=== PATIENT | female | born 1975 | race Caucasian/White ===

== ENCOUNTER → 2016-10-27 | Outpatient (CLI) | payer BC | END | disposition home or self-care (01) | LOC: GMAJ 10:52 | PROVIDERS: ATTEND Family Medicine | DX: I10 Essential (primary) hypertension (principal) ==

== ENCOUNTER 2016-11-24 12:16 | Inpatient (IN) | payer BC ==
--- NOTE | 2016-11-24 12:34 | ED.PDOC ---
History of Present Illness - General Chief Complaint: GI Problem Stated Complaint: vomiting Time Seen by Provider: 11/24/16 12:30 Source: patient Exam Limitations: no limitations - History of Present Illness Initial Comments: Annetta Miranda 41 y/o female stated had watery diarrhea today as well as nausea /vomiting.Had been Treated for shingles on her face 3 days ago with antiviral and gabapentin. Timing/Duration: 1-3 hours Severity: moderate Improving Factors: nothing Worsening Factors: nothing Associated Symptoms: nausea/vomiting Allergies/Adverse Reactions: Allergies NO KNOWN ALLERGY Allergy (Verified 11/24/16 12:31) Home Medications: Ambulatory Orders Citalopram Hydrobromide [Celexa] 40 mg PO DAILY 10/30/13 Lisinopril 10 mg PO DAILY 10/31/15 Review of Systems - Review of Systems Constitutional: States: no symptoms reported EENTM: States: no symptoms reported Respiratory: States: no symptoms reported Cardiology: States: no symptoms reported Gastrointestinal/Abdominal: States: see HPI Musculoskeletal: States: no symptoms reported Skin: States: see HPI Past Medical History (General) - Patient Medical History Hx Congestive Heart Failure: No Hx Hypertension: Yes Hx Diabetes: No Hx Other PMH: Yes - shingles Surgical History: other - hysterectomy - Vaccination History Hx Influenza Vaccination: No Hx Pneumococcal Vaccination: No - Social History Hx Tobacco Use: Yes Family Medical History - Family History Mother Family History: Unknown Living Status: Unknown Physical Exam - Physical Exam General Appearance: Alert, No apparent distress Eye Exam: bilateral normal Ears, Nose, Throat: hearing grossly normal, normal ENT inspection, normal pharynx Neck: non-tender, full range of motion Respiratory: chest non-tender, lungs clear, normal breath sounds Cardiovascular/Chest: normal peripheral pulses, regular rate, rhythm, no murmur Peripheral Pulses: radial,right: 1+, radial,left: 1+ Gastrointestinal/Abdominal: normal bowel sounds, non tender, soft, no organomegaly Back Exam: normal inspection, no CVA tenderness Extremity: normal range of motion, non-tender, no calf tenderness Neurologic: alert, normal mood/affect, oriented x 3 Skin Exam: normal color, warm/dry, rash - dried skin rash left side face Progress - Progress Progress: 11/24/16 19:08 Vital Signs - 8 hr 11/24/16 11/24/16 11/24/16 12:20 14:00 15:29 Temperature 98.7 F Pulse Rate [ 107 H 130 H 108 H pulse ox] Respiratory 20 20 18 Rate Blood Pressure 114/73 108/67 [Left Arm] O2 Sat by Pulse 98 95 93 L Oximetry 11/24/16 18:00 Temperature Pulse Rate [ 92 H pulse ox] Respiratory 20 Rate Blood Pressure 112/74 [Left Arm] O2 Sat by Pulse 94 L Oximetry Laboratory Last Values WBC 23.9 K/mm3 (4.8-10.8) H* 11/24/16 13:40 RBC 5.84 M/mm3 (4.20-5.40) H 11/24/16 13:40 Hgb 18.0 gm/dL (12.0-16.0) H 11/24/16 13:40 Hct 53.9 % (36.0-47.0) H* 11/24/16 13:40 MCV 92.2 fl (81.0-99.0) 11/24/16 13:40 MCH 30.8 pg (27.0-31.0) 11/24/16 13:40 MCHC 33.3 g/dL (33.0-37.0) 11/24/16 13:40 RDW 14.4 % (11.5-14.5) 11/24/16 13:40 Plt Count 211 K/mm3 (130-400) 11/24/16 13:40 MPV 7.6 fl (7.40-10.4) 11/24/16 13:40 Absolute Neuts (auto) Not Reportable 11/24/16 13:40 Absolute Lymphs (auto) Not Reportable 11/24/16 13:40 Absolute Monos (auto) Not Reportable 11/24/16 13:40 Absolute Eos (auto) Not Reportable 11/24/16 13:40 Neutrophils % Not Reportable 11/24/16 13:40 Neutrophils % (Manual) 86.0 % 11/24/16 13:40 Lymphocytes % Not Reportable 11/24/16 13:40 Lymphocytes % (Manual) 9.0 % 11/24/16 13:40 Monocytes % Not Reportable 11/24/16 13:40 Monocytes % (Manual) 1.0 % 11/24/16 13:40 Eosinophils % Not Reportable 11/24/16 13:40 Basophils % Not Reportable 11/24/16 13:40 Band Neutrophils 4.0 % 11/24/16 13:40 Platelet Estimate Nor (NORMAL) 11/24/16 13:40 Normal RBC Morphology Normal rbc morph 11/24/16 13:40 ESR 1 mm/hr (0-25) 11/24/16 13:40 Sodium 141 mmol/L (135-145) 11/24/16 13:40 Potassium 3.9 mmol/L (3.6-5.0) 11/24/16 13:40 Chloride 103 mmol/L (101-111) 11/24/16 13:40 Carbon Dioxide 24 mmol/L (21-31) 11/24/16 13:40 Anion Gap 17.9 (12-18) 11/24/16 13:40 BUN 15 mg/dL (7-18) 11/24/16 13:40 Creatinine 0.76 mg/dL (0.6-1.3) 11/24/16 13:40 BUN/Creatinine Ratio 19.7 (10-20) 11/24/16 13:40 Random Glucose 127 mg/dL (70-105) H 11/24/16 13:40 Serum Osmolality 283.7 mOsm/L (275-295) 11/24/16 13:40 Lactic Acid 1.5 mmol/L (0.5-2.2) 11/24/16 15:55 Calcium 10.1 mg/dL (8.4-10.2) 11/24/16 13:40 Total Bilirubin 0.6 mg/dL (0.2-1.0) 11/24/16 13:40 AST 106 IU/L (10-42) H 11/24/16 13:40 ALT 166 IU/L (10-60) H 11/24/16 13:40 Alkaline Phosphatase 79 IU/L (42-121) 11/24/16 13:40 C-Reactive Protein 0.6 mg/dL (0-1.0) 11/24/16 13:40 Serum Total Protein 7.4 gm/dL (6.4-8.2) 11/24/16 13:40 Albumin 4.5 g/dl (3.2-5.5) 11/24/16 13:40 Globulin 2.9 gm/dL (2.3-3.5) 11/24/16 13:40 Albumin/Globulin Ratio 1.6 (1.1-1.9) 11/24/16 13:40 Urine Color Yellow (Yellow) 11/24/16 16:20 Urine Appearance Clear (Clear) 11/24/16 16:20 Urine pH 7.5 (4.5-7.8) 11/24/16 16:20 Ur Specific [place] 1.015 (1.005-1.030) 11/24/16 16:20 Urine Protein 30 mg/dL 11/24/16 16:20 Urine Glucose (UA) Negative mg/dL (Negative) 11/24/16 16:20 Urine Ketones Negative mg/dL (NEGATIVE) 11/24/16 16:20 Urine Blood Trace-lysed (Negative) H 11/24/16 16:20 Urine Nitrite Negative 11/24/16 16:20 Urine Bilirubin Negative (NEGATIVE) 11/24/16 16:20 Urine Urobilinogen 0.2 mg/dL (0.2-1.0) 11/24/16 16:20 Ur Leukocyte Esterase Negative (Negative) 11/24/16 16:20 Urine RBC 0-1 /hpf 11/24/16 16:20 Urine WBC 1-3 /hpf 11/24/16 16:20 Ur Epithelial Cells 1-3 /hpf 11/24/16 16:20 Amorphous Sediment 1+ 11/24/16 16:20 Urine Bacteria Rare 11/24/16 16:20 Urine Mucus Large 11/24/16 16:20 Departure - Departure Clinical Impression: History of shingles, Abnormal LFTs (liver function tests), Elevated hemoglobin Nausea & vomiting Qualifiers: Vomiting type: unspecified Vomiting Intractability: unspecified Qualified Code( s): R11.2 - Nausea with vomiting, unspecified Diarrhea Qualifiers: Diarrhea type: unspecified type Qualified Code(s): R19.7 - Diarrhea, unspecified Time of Disposition: 19:12 Disposition: Admit Patient Condition: Fair Departure Forms: Patient Portal Self Enrollment Referrals: Ronnie Story MD [Primary Care Provider] - 1-2 Weeks Home Medications: Ambulatory Orders Citalopram Hydrobromide [Celexa] 40 mg PO DAILY 10/30/13 Lisinopril 10 mg PO DAILY 10/31/15 Decision To Admit - Decistion To Admit Decision to Admit Reason: Admit from ER Decision to Admit Date: 11/24/16 Decision to Admit Time: 19:11
[2016-11-24] MEDS ORDERED: LACTATED RINGERS 1,000 ML IVS ONE (12:37)
[2016-11-24] MEDS ORDERED: PROMETHAZINE HCL INJ 25 MG/ML VIAL IM ONE (12:37)
[2016-11-24] MEDS ORDERED: levoFLOXacin 500MG IV 500 MG in PREMIX BAG 1 BAG IVPB ONE (14:50)
[2016-11-24] MEDS ORDERED: levoFLOXacin 500MG IV 100 ML IVPB ONE (15:22)
--- NOTE | 2016-11-24 16:50 | CT ---
EXAM DESCRIPTION: Soft Tissue Neck w/Contrast CLINICAL HISTORY: 41 years Female skin irritations/discomfort, sudden onset of skin rash, elevated white count COMPARISON: None. TECHNIQUE: Contiguous axial images obtained through the neck without IV contrast. Reformatted images obtained. This exam was performed according to our department optimization program which includes automated exposure control, adjustment of the mA and/or kv according to patient size and/or use of iterative reconstruction technique. FINDINGS: The visualized intracranial structures and post septal orbits appear grossly unremarkable. The parotid glands appear within normal limits. There are mildly prominent lymph nodes in and around the parotid on the left. The submandibular glands appear normal in size. There is mild prominence of the ducts and the submandibular glands without evidence of edema. No obstructing calculus is noted. There appears to be accessory salivary gland tissue along the floor of the mouth which is a normal variant. The pharynx and larynx appear unremarkable. Scattered lymph nodes in the neck likely reactive. No enlarged nodes or mass lesions are identified. No fluid or significant mucosal thickening in the visualized paranasal sinuses. There is subcutaneous stranding and edema in the posterior and inferior periauricular region on the left extending along the parotid and the Journal cleidomastoid. This is of uncertain clinical significance. Question cellulitis. Other etiology is not excluded. No focal or drainable fluid collection is noted. Multilevel degenerative change in the spine with findings suggesting disc herniation posterior to C5-C6 with material extending along the posterior margin of the C5 vertebral body. This appears to result in mild stenosis. Moderate stenosis at C6-C7. IMPRESSION: There is subcutaneous stranding and edema along the periauricular region on the left extending along the left occipital scalp, left parotid and sternocleidomastoid of uncertain clinical significance. Given the patient's history findings suggest cellulitis Scattered likely reactive lymph nodes Degenerative changes as described in the cervical spine Electronically signed by: Chely Luong 11/24/2016 4:49 PM CDT
--- NOTE | 2016-11-24 16:51 | CT ---
EXAM DESCRIPTION: Maxillofacial CLINICAL HISTORY: 41 years Female skin irritations/discomfort, sudden onset of skin rash, elevated white count COMPARISON: None. TECHNIQUE: Contiguous axial images obtained through the maxillofacial region after administration of IV contrast. Reformatted images obtained. This exam was performed according to our department optimization program which includes automated exposure control, adjustment of the mA and/or kv according to patient size and/or use of iterative reconstruction technique. FINDINGS: The post septal orbits appear unremarkable. No fluid or significant mucosal thickening in the visualized paranasal sinuses. 1 there is a small amount of subcutaneous stranding and edema which extends in the posterior and inferior periauricular region on the left and along the left aspect of the occiput. Inflammation extends along the sternocleidomastoid. No focal fluid collection is noted. Question cellulitis. Other etiology is not excluded. The parotid glands appear intrinsically normal. Submandibular glands are within normal limits with accessory tissue along the floor the mouth. Degenerative changes in the cervical spine at C5-6 and C6-7 with findings suggesting HNP at C5-6. No evidence of acute fracture of the facial bones. IMPRESSION: There is subcutaneous stranding and edema in the left periauricular region extending along the posterior aspect of the occipital scalp and along the neck on the left along the sternocleidomastoid and the mandibular angle. Findings are nonspecific, but given the patient's history, favor cellulitis Scattered likely reactive lymph nodes No focal fluid collection identified Electronically signed by: Chely Luong 11/24/2016 4:50 PM CDT
[2016-11-24] MEDS ORDERED: GABAPENTIN 300 MG CAP PO ONE (18:43)
--- NOTE | 2016-11-24 19:54 | HP ---
SUPERVISING PHYSICIAN: Ronnie Story MD CHIEF COMPLAINT: Facial rash and nausea. HISTORY OF PRESENT ILLNESS: This is a 41-year-old, female patient who has had complaints of a rash on the left side of her face since about Tuesday. She saw her primary care physician, Dr. Ronnie Story, in clinic on Tuesday and was diagnosed with shingles of her V1, V2, V3 dermatome on the left side of her face. She was given Valtrex and gabapentin. It is to be noted that about a month ago, she had complaints of bilateral ear pain and was treated with Levaquin for an ear infection. She said about a week ago, she thought her ear infection had come back and her left ear was really hurting. She took the medicine that Dr. Story had prescribed for her. Today it worsened to the point that she came back to see him . The shingles vesicles had improved and were crusted over, but she looked to have a bacterial infection on the left side of her face. Dr. Story initially had tried to get her to be admitted to the hospital once she had a sonogram completed. Initially she decided she would not be admitted, but the pain worsened so badly that she went to the Emergency Room. In the Emergency Room, she complained mostly of nausea with vomiting as well as pain to the left face. Initial lab work in the Emergency Room revealed WBC 23,900 with neutrophils 86%. Hemoglobin 18, hematocrit 53.9. Her electrolytes were basically within normal limits, but her glucose was slightly elevated at 127. Lactic acid 2.3, AST 106, ALT 166. She was given some fluids in the Emergency Room and then a CT of the soft tissues of her neck per radiologic interpretation showed subcutaneous stranding and edema along the periauricular region and on the left extending along the left occipital scalp, left parotid and sternocleidomastoid of uncertain clinical significance. Given the patient's history, findings suggest cellulitis, scattered likely reactive lymph nodes. She also had a maxillofacial CT that per radiologic interpretation showed subcutaneous stranding and edema in the left periauricular region extending along the posterior aspect of the occipital scalp and along the neck on the left, along the sternocleidomastoid and the mandibular angle. Findings are nonspecific, but given the patient's history, favor cellulitis. There were scattered likely reactive lymph nodes and no focal fluid collection identified. Her followup lactic acid after fluids was 1.5. Her UA was basically within normal limits. She was given IV Levaquin, some promethazine and I was called for admission to the hospital. The patient was admitted to the Medical/Surgical Floor for facial cellulitis as well as herpes zoster. PAST MEDICAL HISTORY: 1. Hypertension. 2. Depression. PAST SURGICAL HISTORY: 1. Hysterectomy. OUTPATIENT MEDICATIONS: 1. Lisinopril. 2. Citalopram. ALLERGIES: NO KNOWN DRUG ALLERGIES. SOCIAL HISTORY: She works at [employer]. She is . She has one child. She smokes 1/2 to 1 pack of cigarettes daily. She denies any ETOH or illicit drug use. REVIEW OF SYSTEMS: GENERAL: Positive for fatigue. Negative for fever or weight changes. HEENT: As per history of present illness. RESPIRATORY: Denies wheezing, coughing or shortness of breath. CARDIAC: Denies chest pain, palpitations or tachycardia. GASTROINTESTINAL: Positive for nausea and vomiting. Negative for diarrhea or constipation. GENITOURINARY: Denies hematuria, dysuria or polyuria. SKIN: As per history of present illness. NEUROLOGIC: Positive for burning rash on the left side of her face. Negative for dizziness or seizures. PHYSICAL EXAMINATION: VITAL SIGNS: Temperature 101. Heart rate has gone as high as 130, it is now 99. Blood pressure 112/63. Respiratory rate 16. O2 saturation 93% on room air. GENERAL: This is a 41-year-old, female patient who is lying in her hospital bed. She is in no acute distress. HEENT: Normocephalic, atraumatic. Pupils are equal and reactive. Oropharynx is clear. NECK: Supple without mass. RESPIRATORY: Clear to auscultation bilaterally. CHEST: There is equal rise and fall of the chest with inspiration and expiration. CARDIOVASCULAR: Regular rate and rhythm. ABDOMEN: Soft, nondistended, nontender. Bowel sounds are positive. EXTREMITIES: No cyanosis, clubbing or edema. NEUROLOGIC: Awake, alert and oriented times three. SKIN: She has several crusting pustules on the left side of her face that extend up to the nondenominational area and down onto the left neck. She also has multiple areas of cellulitis along that left side of her face that are warm and diffusely erythematous. There is no fluctuance. There is some edema noted. LABORATORY: Labs and films are as per history of present illness with the exception of her ESR was 1, CRP 1.7. All other labs and films have been reviewed via the EMR. ASSESSMENT: 1. Cellulitis of the left face. 2. Herpes zoster of the left V1, V2, V3 dermatomes. 3. Nausea and vomiting. 4. Leukocytosis with a left shift and an elevated C-reactive protein, most likely secondary to #1. 5. Hypertension. 6. Depression. PLAN: We will admit the patient to the hospital. I have ordered morning labs as well as started her on vancomycin per pharmacy protocol. I will also continue her Levaquin. She is to get Valtrex for approximately 5 more days. I will also give her some amitriptyline to help with sleep at night. She will also get gabapentin to help with the herpetic neuralgia. I have ordered blood cultures. I have also consulted Dr. Alvarez, general surgeon, for in the morning. I will continue the Levaquin. We will continue to monitor the patient closely and follow as needed. Dr. Story is the collaborating physician and available for consultation. #[id number] [facility]
[2016-11-24] MEDS ORDERED: SODIUM CHLORIDE 0.9% (FLUSH) 10 ML SYG IV PRN (20:17)
[2016-11-24] MEDS ORDERED: ALBUTEROL SULFATE 2.5 MG/3 ML VIAL NEB PRN (20:20)
[2016-11-24] MEDS ORDERED: ALPRAZolam 0.25 MG TAB PO PRN (20:22)
[2016-11-24] MEDS ORDERED: VANCOMYCIN HCL INJ 1,000 MG, VANCOMYCIN HCL INJ 500 MG in SODIUM CHLORIDE 0.9% 250ML 25... IVPB ONE (20:24)
[2016-11-24] MEDS ORDERED: ENOXAPARIN SODIUM 40 MG/0.4 ML SYG SUBCU SCH (20:30)
[2016-11-24] MEDS ORDERED: PANTOPRAZOLE SODIUM IV 40 MG VIAL IV SCH (20:30)
[2016-11-24] MEDS ORDERED: IV SET AND CAP CHANGE INJ INJ SCH (20:30)
[2016-11-24] MEDS ORDERED: ONDANSETRON INJ 4 MG/2 ML VIAL IV PRN (20:56)
[2016-11-24] MEDS ORDERED: VANCOMYCIN HCL INJ 500 MG VIAL ONE (21:46)
[2016-11-24] MEDS ORDERED: SODIUM CHLORIDE 0.9% 250ML 250 ML ONE (21:49)
[2016-11-24] MEDS: valACYclovir 500 MG TAB PO SCH (22:06)
[2016-11-24] MEDS: AMITRIPTYLINE HCL 10 MG TAB PO SCH (22:07)
[2016-11-24] MEDS ORDERED: VANCOMYCIN HCL INJ 1,000 MG VIAL IVPB ONE (22:08)
[2016-11-24] MEDS: GABAPENTIN 300 MG CAP PO SCH (22:11)
[2016-11-25] MEDS ORDERED: VANCOMYCIN PER PHARMACY INJ SCH (08:00)
[2016-11-25] MEDS ORDERED: CITALOPRAM HBR 20 MG TAB ONE (08:00)
[2016-11-25] MEDS: LISINOPRIL 10 MG TAB PO SCH (08:41)
[2016-11-25] MEDS: GABAPENTIN 300 MG CAP PO SCH ×3 (08:41→21:01)
[2016-11-25] MEDS: valACYclovir 500 MG TAB PO SCH ×3 (08:41→21:01)
[2016-11-25] MEDS ORDERED: CITALOPRAM HYDROBROMIDE 40 MG PO SCH (09:00)
[2016-11-25] MEDS ORDERED: GABAPENTIN 300 MG CAP PO ONE (11:35)
--- NOTE | 2016-11-25 13:21 | PN ---
SUPERVISING PHYSICIAN: Ronnie Story MD DATE: 11/25/16 SUBJECTIVE: The patient is sitting up in her hospital bed. She is in no acute distress. She complains that the burning and tingling pain to her left face is somewhat better, but the pain continues and is especially bad at night. Otherwise, she says her face does not hurt as bad as it did yesterday. She does say that it feels like the skin is still very tight. OBJECTIVE: VITAL SIGNS: Temperature 98.2. Heart rate 97. Blood pressure 99/ 72. Respiratory rate 16. O2 saturation 97% on room air. LUNGS: Clear to auscultation bilaterally. CARDIAC: Regular rate and rhythm. ABDOMEN: Soft, nondistended, nontender. Bowel sounds are positive. EXTREMITIES: No cyanosis, clubbing or edema. NEUROLOGIC: Awake, alert and oriented times three. INTEGUMENT: The herpetic lesions on the left side of her face are crusted over and there is no drainage. Her face is only minimally erythematous to the areas of cellulitis. It is still fairly edematous, especially to just below the left ear, but there is no fluctuance and it is improved greatly since yesterday. LABORATORY: WBCs have come down to 13.2. Neutrophils are now 74.2%. Electrolytes are basically within normal limits with improvement of her AST to 106 to 54 and her ALT was 166 yesterday and is now 106. Preliminary blood cultures are negative to date. All other labs and films have been reviewed via the EMR. ASSESSMENT: 1. Cellulitis of the left face. 2. Herpes zoster of the left V1, V2, V3 dermatomes. 3. Nausea and vomiting. 4. Leukocytosis with a left shift and an elevated C-reactive protein, most likely secondary to #1. 5. Hypertension. 6. Depression. PLAN: We will continue present supportive care including vancomycin and Levaquin. I will repeat her labs in the morning. She is improving clinically. I had initially consulted Dr. Alvarez, but he was not electroneurodiagnostic technologist, although I did speak to him and because there is no abscess noted on the CT, he said he could followup with her later, but he did recommend that she take a shower and wash the area gently with some soap with warm water. I have given her an extra dose of gabapentin and I will add prn gabapentin of 300mf tid. Hopefully that will help with the herpetic neuralgia. Otherwise, we will continue to monitor the patient closely and follow as needed. Dr. Story is the collaborating physician and available for consultation. #[id number] [facility]
[2016-11-25] MEDS ORDERED: levoFLOXacin 500MG IV 100 ML IVPB ONE (14:25)
[2016-11-25] MEDS ORDERED: levoFLOXacin 500MG IV 500 MG in PREMIX BAG 1 BAG IVPB SCH (15:00)
[2016-11-25] MEDS ORDERED: SODIUM CHLORIDE 0.9% 250ML 250 ML ONE ×2 (15:15→19:29)
[2016-11-25] MEDS ORDERED: VANCOMYCIN HCL INJ 1,000 MG VIAL IVPB ONE ×2 (15:16→19:30)
[2016-11-25] MEDS ORDERED: PANTOPRAZOLE SODIUM TAB 40 MG PO ONE (15:16)
[2016-11-25] MEDS: VANCOMYCIN HCL INJ 750 MG in SODIUM CHLORIDE 0.9% 250ML 250 ML IVPB SCH (15:31)
[2016-11-25] MEDS: PANTOPRAZOLE SODIUM TAB 40 MG PO SCH (16:28)
[2016-11-25] MEDS ORDERED: BIFIDOBACTERIUM INFANTIS 4 MG CAP ONE (19:30)
[2016-11-25] MEDS ORDERED: ENOXAPARIN SODIUM 40 MG/0.4 ML SYG SUBCU ONE (19:30)
[2016-11-25] MEDS ORDERED: GABAPENTIN 300 MG CAP PO PRN (20:44)
[2016-11-25] MEDS ORDERED: BIFIDOBACTERIUM INFANTIS 4 MG CAP PO SCH (21:00)
[2016-11-25] MEDS ORDERED: ENOXAPARIN SODIUM 40 MG/0.4 ML SYG SUBCU SCH (21:00)
[2016-11-25] MEDS: AMITRIPTYLINE HCL 10 MG TAB PO SCH (21:01)
[2016-11-25] MEDS: SODIUM CHLORIDE 0.9% (FLUSH) 10 ML SYG IV SCH (21:01)
[2016-11-26] MEDS: VANCOMYCIN HCL INJ 750 MG in SODIUM CHLORIDE 0.9% 250ML 250 ML IVPB SCH (03:40)
[2016-11-26] MEDS: PANTOPRAZOLE SODIUM TAB 40 MG PO SCH (06:11)
[2016-11-26] MEDS ORDERED: CITALOPRAM HBR 20 MG TAB ONE (07:47)
[2016-11-26] MEDS: SODIUM CHLORIDE 0.9% (FLUSH) 10 ML SYG IV SCH (08:49)
[2016-11-26] MEDS: valACYclovir 500 MG TAB PO SCH (08:49)
[2016-11-26] MEDS: LISINOPRIL 10 MG TAB PO SCH (08:50)
[2016-11-26] MEDS: GABAPENTIN 300 MG CAP PO SCH (08:50)
[2016-11-26] MEDS ORDERED: CITALOPRAM HBR 20 MG TAB PO SCH (09:00)
[2016-11-26 10:04] VITALS: BP 131/85; TEMP 97; O2SAT 98
[2016-11-26] MEDS ORDERED: HYDROcodone 5MG/APAP 325MG 1 EA TAB PO PRN (10:17)
--- NOTE | 2016-11-26 13:25 | DS ---
DISCHARGE DIAGNOSIS: 1. Acute symptomatic herpes zoster, left face, involving lower branch of the trigeminal nerve. 2. Cellulitis of the left face with localized edema and erythema, probably secondary to the underlying viral illness, yet the possibility of a bacterial infection is to be considered and was treated accordingly, showing clinical improvement. 3. Nausea and vomiting, showing improvement. 4. Leukocytosis, showing improvement. 5. History of hypertension. 6. History of chronic depression. HISTORY OF PRESENT ILLNESS: This 41-year-old, white female, who works in a local [employer], was admitted to the hospital two days prior to discharge with acute worsening rash, swelling, and pain on the left side of her face. She had had this for approximately four days prior to that time and had been seen in the clinic on Tuesday and diagnosed with shingles and was started on Valtrex and gabapentin. When she was seen again on Tuesday, two days after initiation of therapy, the erythema, the swelling, and the pain were worse and the shingles vesicles had improved and crusted over, but the possibility of a secondary infection contributing to cellulitis resulted in the patient being admitted to the hospital for parenteral therapy, which included vancomycin IV as well as Levaquin. LABORATORY: Initial white count was 23,900, decreasing to 10,300 with 68% neutrophils, down from 86%, and with 4 bands. Hemoglobin stabilized at 14.7. Chemistries showed sugar decreasing to 97 while potassium was 4.0. BUN 17, creatinine 0.71, C-reactive protein was up to 2.1 while ESR was only 1 on admission. Urine showed some red blood cells, otherwise clean. Blood cultures were obtained and were negative. Maxillofacial CT scan did reveal significant evidence of local tissue involvement suggesting a cellulitis or inflammatory process. HOSPITAL COURSE: The patient was feeling much improved on her second day in the hospital and was feeling well enough to go home on the day of discharge. Family was present. Her appetite is improved. PLAN: The patient will be discharged home to have followup as an outpatient with Dr. Story this next week on 12/01/16 at 11:30 AM. Please refer to home medications. To her home medications are added gabapentin 300 mg b.i.d., [place] 5/325 q.6h. p.r.n. pain, #20 given, Levaquin 500 mg daily for 5 days, and Valtrex 1 gram t.i.d., #12 for 4 days with the patient already having a supply of these medications at home. The patient is to encourage fluid, hydration and nutritional support. May try Burow's or Epsom salt soaks to the skin eruption to help dry the lesions. To get a work release to return to work at her next visit with Dr. Story in the clinic. She is to return if not improving. [facility][id number] [facility]
== END 2016-11-26 13:12 | disposition home or self-care (01) | DRG 603 ==
LOC: ER 12:16 → OBSVTOIN 19:53 → MS 19:53
PROVIDERS: ADMIT Nurse Practitioner Acute Care; ATTEND Emergency Medicine
PROC: BN25YZZ Computerized Tomography (CT Scan) of Facial Bones using Other Contrast (ICD-10-PCS; principal; 2016-11-24)
PROC: BW2FYZZ Computerized Tomography (CT Scan) of Neck using Other Contrast (ICD-10-PCS; 2016-11-24)
DX: L03.211 Cellulitis of face (principal); B02.22 Postherpetic trigeminal neuralgia; R11.2 Nausea with vomiting, unspecified; R19.7 Diarrhea, unspecified; I10 Essential (primary) hypertension; F32.9 Major depressive disorder, single episode, unspecified; F17.210 Nicotine dependence, cigarettes, uncomplicated; M48.02 Spinal stenosis, cervical region; Z79.899 Other long term (current) drug therapy

== ENCOUNTER → 2016-11-24 | Outpatient (CLI) | payer BC ==
--- NOTE | 2016-11-25 10:47 | US ---
EXAM DESCRIPTION: Soft Tissue,Head/Neck CLINICAL HISTORY: 41 years Female, CELLULITIS OF NECK COMPARISON: None. FINDINGS: Ultrasound of the soft tissues of the left-side of the neck was performed. No suspicious mass or fluid collection is seen at the area of concern in the left side of the neck. There are several subthreshold left-sided cervical lymph nodes, none of which are pathologically enlarged. The largest measures approximately 8 mm short axis diameter. IMPRESSION: Negative exam. No evidence of adenopathy, abscess or other left-sided neck mass. If symptoms persist or worsen, CT with IV contrast may be helpful. Electronically signed by: Glen Chase MD 11/25/2016 10:45 AM CDT
== END ==
LOC: US 10:11
PROVIDERS: ATTEND Family Medicine
DX: L03.221 Cellulitis of neck (principal)

== ENCOUNTER → 2017-01-18 | Outpatient (CLI) | payer BC ==
--- NOTE | 2017-01-20 11:54 | MAM ---
EXAM DESCRIPTION: 3D Screening BILATERAL : Digital Mammography. CLINICAL HISTORY: 42 years Female SCREENING . Postmenopausal. No complaints. No family history of breast cancer. No HRT. COMPARISON: Baseline study at this facility.. No prior reports available. TECHNIQUE: Bilateral CC and MLO projection full-field images, 3-D tomosynthesis digital mammographic technique. Also bilateral synthesized CC/ MLO full-field images. CAD not utilized. FINDINGS: The breast parenchymal density pattern is: Almost entirely fatty. Scattered areas of fibroglandular density. Heterogeneously dense breast tissue, which may obscure small masses. Extremely dense breast tissue, which lowers the sensitivity of mammography. No skin thickening or nipple retraction focal asymmetry in the 830 clock position of the middle third of the right breast approximately 6 cm from the nipple. Not associated with microcalcifications. Bilateral intramammary lymph nodes. No focal, stellate mass or density, focal asymmetry , and no suspicious microcalcifications left breast. IMPRESSION: BI-RADS CATEGORY: 0 - INCOMPLETE- Need additional imaging evaluation. FOLLOW-UP: Recall for additional imagin-D tomosynthesis right breast with full-field digital LM image targeted ultrasound region of interest middle third right breast. Written communication concerning the IMPRESSION and Follow-up, will be mailed to the patient and referring health care provider. Electronically signed by: Joni Maradiaga MD 01/20/2017 11:53 AM CDT
== END | disposition home or self-care (01) ==
LOC: MAMMO 08:57
PROVIDERS: ATTEND Nurse Practitioner Family
DX: Z12.31 Encounter for screening mammogram for malignant neoplasm of breast (principal)
CPT/HCPCS: 77063; G0202

== ENCOUNTER → 2017-02-01 | Outpatient (CLI) | payer BC ==
--- NOTE | 2017-02-02 10:50 | MAM ---
EXAM DESCRIPTION: 3D Diagnostic, Right: Digital mammography. CLINICAL HISTORY: 42 yearsFemaleABNORMAL MAMMO . Focal asymmetry in the right breast. COMPARISON: 3-D breast tomosynthesis digital screening bilateral study 01/18/2017. Targeted right breast ultrasound following this examination. Report from prior examination also reviewed. TECHNIQUE: Right LM projection full-field images, 3-D tomosynthesis digital mammographic technique. Also right synthesized LM full-field images. CAD not utilized. FINDINGS: Right breast parenchymal density pattern is: Scattered areas of fibroglandular density. No skin thickening or nipple retraction . Focal asymmetry in the middle third of the right breast, lateral and lower outer quadrant not as definitive on this study. ULTRASOUND: Hypoechoic mass with echogenic center and well-defined hernandez, parallel orientation and posterior acoustic enhancement at the 900 clock position of the right breast, 7 cm from the nipple. Dimensions are 9.7 x 5.2 mm, mass is not vascular. Most likely a lymph node. No other focal solid lesion or cyst. No parenchymal edema or large calcifications. No skin thickening. IMPRESSION: BI-RADS CATEGORY: 2 - BENIGN FINDINGS. FOLLOW UP: Return to routine digital bilateral screening, one year interval from January 2017. The FINDINGS and the follow-up plan were reviewed in person with the patient after the ultrasound examination. Written communication explaining the IMPRESSION and follow-up, will be mailed to the patient and referring health care provider. According to the [employer], yearly mammograms are recommended starting at age 40 and continuing as long as a woman is in good health. Any breast change noted on a breast self-exam should be reported promptly to the patient's healthcare provider. Breast MRI is recommended for women with an approximately 20-25% or greater lifetime risk of breast cancer, including women with a strong family history of breast or ovarian cancer and women who have been treated for Hodgkin's disease. A negative mammographic report should not delay tissue diagnosis in patients with significant clinical history or physical findings. Extremely dense breast tissue limits the sensitivity of digital mammography. Electronically signed by: Joni Maradiaga MD 02/02/2017 10:49 AM CDT
--- NOTE | 2017-02-02 11:16 | US ---
EXAM DESCRIPTION: Breast,Right: Ultrasound CLINICAL HISTORY: 42 yearsFemaleABNORMAL MAMMO. Focal asymmetry in the lower outer quadrant of the right breast. COMPARISON: Digital 3-D tomosynthesis right breast on this visit. 3-D bilateral digital screening tomosynthesis study 01/18/2017. TECHNIQUE: Transcutaneous scanning of the lateral right breast utilizing two-dimensional and Doppler modes. Scanning performed by the diplomatic courier and Dr. Maradiaga. FINDINGS: Hypoechoic mass with echogenic center and well-defined hernandez, parallel orientation and posterior acoustic enhancement at the 900 clock position of the right breast, 7 cm from the nipple. Dimensions are 9.7 x 5.2 mm, mass is not vascular. Most likely a lymph node. No other focal solid lesion or cyst. No parenchymal edema or large calcifications. No skin thickening IMPRESSION: 1. Bi-Rads Category 2: Benign. 2. Please refer to right breast 3-D tomosynthesis diagnostic examination on this visit. The findings and the follow-up plan were reviewed in person with the patient after the examination. Written communication explaining the IMPRESSION and follow-up will be mailed to the patient and referring care provider. Electronically signed by: Joni Maradiaga MD 02/02/2017 11:14 AM CDT
== END | disposition home or self-care (01) ==
LOC: MAMMO 16:30
PROVIDERS: ATTEND Family Medicine
DX: R92.8 Other abnormal and inconclusive findings on diagnostic imaging of breast (principal)
CPT/HCPCS: 76641; G0206; G0279

== ENCOUNTER → 2017-06-07 | Outpatient (CLI) | payer BC | LOC: GMATM 19:52 | PROVIDERS: ATTEND Nurse Practitioner Family | DX: N30.91 Cystitis, unspecified with hematuria (principal) ==

== ENCOUNTER 2018-02-13 11:56 | Emergency (ER) | payer BC ==
[2018-02-13] MEDS ORDERED: diphenhydrAMINE HCL 50 MG/ML VIAL ONE (12:00)
[2018-02-13] MEDS ORDERED: diphenhydrAMINE HCL 50 MG/ML VIAL IV ONE (12:03)
[2018-02-13] MEDS ORDERED: diphenhydrAMINE HCL 50 MG/ML VIAL IM ONE (12:04)
[2018-02-13] MEDS ORDERED: RANITIDINE HCL IVPB ONE (12:15)
[2018-02-13] MEDS ORDERED: SODIUM CHLORIDE 0.9% IVPB ONE (12:15)
[2018-02-13] MEDS ORDERED: predniSONE 20 MG TAB PO ONE (12:20)
[2018-02-13] MEDS ORDERED: raNITIdine HCL INJ 25 MG/ML VIAL ONE (12:20)
[2018-02-13] MEDS ORDERED: SODIUM CHLORIDE 0.9% 50ML 50 ML ONE (12:20)
[2018-02-13] MEDS ORDERED: MONTELUKAST 10 MG TAB PO ONE (12:59)
--- NOTE | 2018-02-13 13:08 | ED.PDOC ---
History of Present Illness - General Chief Complaint: Allergic Reaction Stated Complaint: allergic reaction Time Seen by Provider: 02/13/18 12:15 Source: patient Exam Limitations: no limitations - History of Present Illness Initial Comments: The patient is a 43-year-old female presenting to emergency room after having had a significant allergic reaction either to betamethasone or Rocephin that she received a couple of hours prior at her primary care doctor's office. The patient is having extreme pruritus and does have some hives. She is anxious. No shortness of breath, no hypoxia and no hypotension. No abdominal pain. No syncope or near syncope. She did take 50 mg of oral Benadryl approximately 15 minutes prior to arrival. she does report a penicillin allergy but has taken Rocephin multiple times in the past and she is uncertain if she has had the betamethasone before. Timing/Duration: 1-3 hours Severity: severe Improving Factors: nothing Worsening Factors: nothing Associated Symptoms: denies symptoms Allergies/Adverse Reactions: Allergies NO KNOWN ALLERGY Allergy (Verified 11/24/16 12:31) Home Medications: Ambulatory Orders Citalopram Hydrobromide [Celexa] 40 mg PO DAILY 10/30/13 Lisinopril 10 mg PO DAILY 10/31/15 Gabapentin [Neurontin] 300 mg PO BID #30 cap 11/26/16 Hydrocodone-Acetaminophen [[place] 5-325 mg] 1 tab PO Q6H PRN #20 tab 11/26/16 Valacyclovir HCl [Valtrex] 1 gm PO TID #12 tab 11/26/16 levoFLOXacin [Levaquin] 500 mg PO DAILY #5 tab 11/26/16 Epinephrine [Epipen 2-Paxton] 0.3 mg IJ ONCE PRN #1 ml 02/13/18 Review of Systems - Review of Systems Constitutional: States: no symptoms reported EENTM: States: no symptoms reported Respiratory: States: no symptoms reported Cardiology: States: no symptoms reported Gastrointestinal/Abdominal: States: no symptoms reported Genitourinary: States: no symptoms reported Musculoskeletal: States: no symptoms reported Skin: States: see HPI Neurological: States: no symptoms reported Endocrine: States: no symptoms reported All other Systems: No Change from Baseline Past Medical History (General) - Patient Medical History Hx Seizures: No Hx Stroke: No Hx Asthma: No Hx of COPD: No Hx Congestive Heart Failure: No Hx Pacemaker: No Hx Hypertension: Yes Hx Diabetes: No Hx MRSA: No - Vaccination History Hx Influenza Vaccination: No Hx Pneumococcal Vaccination: No - Social History Hx Tobacco Use: Yes Hx Alcohol Use: Yes - occasional Hx Substance Use: No Hx Depression: No Hx Physical Abuse: No Hx Emotional Abuse: No - Female History Patient : No - Triage Comment ED Triage Comment: Patient went to [facility] for strep was given rocephin and steroid. Started having an allergic reaction. Was given Benadryl 50 mg liquid PO. Family Medical History - Family History Mother Family History: Unknown Living Status: Unknown Physical Exam - Physical Exam General Appearance: Alert, Anxious, Obvious distress Eye Exam: bilateral normal Ears, Nose, Throat: hearing grossly normal, pharyngeal erythema Neck: non-tender, full range of motion, supple, normal inspection Respiratory: lungs clear, normal breath sounds, no respiratory distress, no accessory muscle use Cardiovascular/Chest: normal peripheral pulses, regular rate, rhythm, no edema Peripheral Pulses: radial,right: 2+, radial,left: 2+, dorsalis pedis,right: 2+, dorsalis pedis,left: 2+ Gastrointestinal/Abdominal: non tender, soft Rectal Exam: deferred Extremity: normal range of motion, non-tender, normal inspection, no pedal edema , no calf tenderness, normal capillary refill Neurologic: medical unit secretary II-XII nml as tested, alert, oriented x 3, other - very anxious and she is unable to sit still because of the itching Skin Exam: other - multiple areas with hives Comments: Vital Signs - 24 hr 02/13/18 12:08 Temperature 97.8 F Pulse Rate [ 68 monitor] Respiratory 18 Rate Blood Pressure 155/80 [Right Arm] O2 Sat by Pulse 95 Oximetry Progress - Progress Progress: 02/13/18 13:10 the patient is a 43-year-old female presenting to the emergency room with a significant allergic reaction most likely either to the betamethasone or Rocephin that she received earlier in the day in treatment for her strep throat. She has received a dose of IV Benadryl, ranitidine, oral prednisone and oral Singulair here. She is doing much better. she is to clam picker over-the- counter Benadryl to take every 4 hours as needed either 25 or 50 mg to control symptoms. If she is worsening in any way then she is to return here. No evidence of anaphylaxis at this point. ER warnings were given. Departure - Departure Clinical Impression: Drug allergy Disposition: Discharge to Home or Self Care Condition: Fair Departure Forms: ED Discharge - Pt. Copy, Patient Portal Self Enrollment Instructions: Drug Allergy, Hives (DC) Diet: regular diet Activity: increase activity as tolerated Referrals: Ronnie Story MD [Primary Care Provider] - 1-2 Weeks Prescriptions: Epinephrine [Epipen 2-Paxton] 0.3 mg IJ ONCE PRN #1 ml PRN Reason: Allergies Home Medications: Ambulatory Orders Citalopram Hydrobromide [Celexa] 40 mg PO DAILY 10/30/13 Lisinopril 10 mg PO DAILY 10/31/15 Gabapentin [Neurontin] 300 mg PO BID #30 cap 11/26/16 Hydrocodone-Acetaminophen [[place]mouth 5-325 mg] 1 tab PO Q6H PRN #20 tab 11/26/16 Valacyclovir HCl [Valtrex] 1 gm PO TID #12 tab 11/26/16 levoFLOXacin [Levaquin] 500 mg PO DAILY #5 tab 11/26/16 Epinephrine [Epipen 2-Paxton] 0.3 mg IJ ONCE PRN #1 ml 02/13/18 Additional Instructions: the patient is a 43-year-old female presenting to the emergency room with a significant allergic reaction most likely either to the betamethasone or Rocephin that she received earlier in the day in treatment for her strep throat. She has received a dose of IV Benadryl, ranitidine, oral prednisone and oral Singulair here. She is doing much better. she is to clam picker over-the- counter Benadryl to take every 4 hours as needed either 25 or 50 mg to control symptoms. If she is worsening in any way then she is to return here. No evidence of anaphylaxis at this point. ER warnings were given. the patient will be written for EpiPen's in case she has a more severe reaction in the future.
[2018-02-13 13:39] VITALS: BP 114/73; TEMP 98.4; O2SAT 96
== END 2018-02-13 13:45 | disposition home or self-care (01) ==
LOC: ER 11:56
DX: L50.0 Allergic urticaria (principal); T50.995A Adverse effect of other drugs, medicaments and biological substances, initial encounter; I10 Essential (primary) hypertension; Z87.891 Personal history of nicotine dependence; Z79.899 Other long term (current) drug therapy; Z88.0 Allergy status to penicillin
CPT/HCPCS: A4216; J1200; J2780; J7512

== ENCOUNTER → 2019-04-17 | Outpatient (CLI) | payer BC ==
--- NOTE | 2019-04-18 09:15 | MRI ---
EXAM DESCRIPTION: Lumbar Spine w/o Contrast : Magnetic Resonance Imaging. CLINICAL HISTORY: OTHER INTERVERTEBRAL DISPLACEMENT LUMBAR REGION COMPARISON: MRI scan lumbar spine February 2007. TECHNIQUE: Multiplanar, multiple standard sequences, non contrast MRI, lumbar spine. FINDINGS: L5-S1: The disc is well visualized on axial T2 series 501, image 3. Minimal disc desiccation with disc space maintained. 3 mm grade 1 retrolisthesis. Posterior midline disc bulge 5 mm impressing on the thecal sac. Hypertrophy of the left posterior flavum ligament. Facet joints are unremarkable. AP canal diameter 12 mm. Moderate narrowing of the left foramen and mild narrowing of the right foramen. Transitional S1 sacral segment, partially lumbarized. Rudimentary S1-S2 disc space. L4-L5: Moderate disc space loss with anterior bulging. Mild endplate reactive changes predominantly in the superior L5 endplate have progressed since the prior study as well as 5 mm grade 1 anterolisthesis and posterior broad-based disc bulge 6 mm. Degenerative hypertrophic changes in the posterior elements: Facet joints and flavum ligaments. AP canal diameter 10 mm. Mild left foraminal stenosis and moderate to severe right foraminal narrowing. Most of these changes have progressed since the prior study. L3-L4: Normal signal in the disc with disc space maintained. Minimal hypertrophy of the posterior ligaments. Canal and bilateral foramina are patent and stable. L2-L3: Normal signal in the disc with disc space maintained. Posterior elements unremarkable. Canal and foramina are patent. Conus terminates at T2. L1-L2: Minimal desiccation the disc. Schmorl's node inferior L1 endplate is stable. No significant disc bulge. Canal and foramina are patent. Circumscribed hyperintense T1 and T2 hemangioma in the L1 vertebral body is stable. Also stable hemangioma in the left posterior L3 vertebral body. T12-L1: Normal signal in the disc with disc space maintained. Posterior elements unremarkable. Canal and foramina are patent. No scoliosis. Paravertebral soft tissues unremarkable. Distal cord normal signal and caliber. Normal marrow signal in the remaining vertebral bodies and the posterior elements. Vertebral bodies are not compressed at any level. IMPRESSION: 1. Progressive spondylosis and anterior spondylolisthesis at L4-L5 since the prior study. Also progressive disc desiccation and bulging. Borderline mild central canal stenosis. Left foraminal mild stenosis. Correlate for left L4 radiculopathy. 2. Progressive disc bulge L5-S1 and retrolisthesis with moderate canal narrowing but no foraminal stenosis. Electronically signed by: Joni Maradiaga MD 04/18/2019 9:13 AM [facility]
== END ==
LOC: MRI 09:00
PROVIDERS: ATTEND Family Medicine
DX: M51.26 Other intervertebral disc displacement, lumbar region (principal); M47.896 Other spondylosis, lumbar region; M51.36 Other intervertebral disc degeneration, lumbar region; M51.86 Other intervertebral disc disorders, lumbar region; M48.061 Spinal stenosis, lumbar region without neurogenic claudication; M51.87 Other intervertebral disc disorders, lumbosacral region; M43.17 Spondylolisthesis, lumbosacral region

== ENCOUNTER 2019-10-12 05:50 | Emergency (ER) | payer BC ==
[2019-10-12] MEDS ORDERED: SODIUM CHLORIDE 0.9% (FLUSH) 10 ML SYG IV PRN (05:55)
--- NOTE | 2019-10-12 06:03 | ED.PDOC ---
History of Present Illness - General Source: patient, RN notes reviewed, Vital Signs reviewed, family - - History of Present Illness Initial Comments: Patient is a 44-year-old white female who presents via EMS secondary to confusion and altered mental status. History is obtained from EMS as well as from the . Patient is few days status post L4-5 lumbar fusion in [place]. Patient has been at home and doing well. Patient had no complaints. She was up walking around normally, you drink you will and her only complaint was some mild constipation for which she took a mild laxative. Before going to bed last night patient was fine, had no confusion or altered mental status. Patient was found by her daughter and to be very confused, and they called EMS. EMS found patient was confused, had a respiratory rate of approximately 6 and was hypoxic at 77% on room air. They gave her 1 mg of Narcan IV which had minimal effect. They placed her on nonrebreather which brought her up to 100% on nonrebreather and oxygen and brought her to the ED. On arrival to the ED, patient has defecated diarrhea all over herself. She is confused and will not answer questions. Timing/Duration: unsure - Last seen normal at approximately 11:00 last night. Severity: severe Improving Factors: nothing Worsening Factors: nothing Associated Symptoms: other - Confusion and diarrhea <Adeel Alvarez - Last Filed: 10/12/19 06:55> <Jack Jean - Last Filed: 10/12/19 08:57> - General Time Seen by Provider: 10/12/19 05:53 - History of Present Illness Allergies/Adverse Reactions: Allergies NO KNOWN ALLERGY Allergy (Verified 11/24/16 12:31) Home Medications: Ambulatory Orders Citalopram Hydrobromide [Celexa] 40 mg PO DAILY 10/30/13 Lisinopril 10 mg PO DAILY 10/31/15 Gabapentin [Neurontin] 300 mg PO BID #30 cap 11/26/16 Hydrocodone-Acetaminophen [Mclain 5-325 mg] 1 tab PO Q6H PRN #20 tab 11/26/16 Valacyclovir HCl [Valtrex] 1 gm PO TID #12 tab 11/26/16 levoFLOXacin [Levaquin] 500 mg PO DAILY #5 tab 11/26/16 Epinephrine [Epipen 2-Paxton] 0.3 mg IJ ONCE PRN #1 ml 11/12/18 Review of Systems - Review of Systems Constitutional: States: no symptoms reported, see HPI. Denies: chills, fever, malaise, weakness EENTM: States: no symptoms reported. Denies: eye pain, blurred vision, double vision Respiratory: States: see HPI, short of breath. Denies: cough, wheezing Cardiology: States: no symptoms reported. Denies: chest pain, palpitations, syncope Gastrointestinal/Abdominal: States: see HPI, diarrhea. Denies: abdominal pain, nausea, vomiting Genitourinary: States: no symptoms reported. Denies: dysuria, frequency Musculoskeletal: States: back pain - Patient is status post lumbar fusion surgery.. Denies: neck pain Skin: States: no symptoms reported. Denies: change in color, rash Neurological: States: no symptoms reported. Denies: headache, numbness, weakness Endocrine: States: no symptoms reported Hematologic/Lymphatic: States: no symptoms reported All other Systems: No Change from Baseline <Adeel Alvarez - Last Filed: 10/12/19 06:55> Past Medical History (General) - Patient Medical History Hx Seizures: No Hx Stroke: No Hx Asthma: No Hx of COPD: No Hx Congestive Heart Failure: No Hx Pacemaker: No Hx Hypertension: Yes Hx Diabetes: No Hx MRSA: No - Vaccination History Hx Influenza Vaccination: No Hx Pneumococcal Vaccination: No - Social History Hx Tobacco Use: Yes Hx Alcohol Use: Yes - occasional Hx Substance Use: No Hx Depression: No Hx Physical Abuse: No Hx Emotional Abuse: No - Female History Patient : No <Adeel Alvarez - Last Filed: 10/12/19 06:55> Family Medical History - Family History Mother Family History: Unknown Living Status: Unknown <Adeel Alvarez - Last Filed: 10/12/19 06:55> Physical Exam - Physical Exam General Appearance: Agitated, Anxious, Obvious distress, Well Developed, Well Groomed, Well Hydrated, Well Nourished Eye Exam: bilateral normal Ears, Nose, Throat: hearing grossly normal, normal ENT inspection, normal pharynx Neck: non-tender, full range of motion, supple Respiratory: chest non-tender, lungs clear, normal breath sounds Cardiovascular/Chest: normal peripheral pulses, no edema, no gallop, no JVD, no murmur, tachycardia Peripheral Pulses: radial,right: 2+, radial,left: 2+ Gastrointestinal/Abdominal: normal bowel sounds, non tender, soft, other - Patient is a midline surgical incisions covered with surgical tape on the abdomen. Back Exam: no CVA tenderness, other - Patient with a low back midline covered with surgical tape status post surgery. Extremity: normal range of motion, non-tender, no pedal edema, no calf te nderness Neurologic: disoriented x 3 - Normalized weakness.On arrival patient was confused, disoriented Skin Exam: warm/dry, pallor Lymphatic: no adenopathy <Adeel Alvarez - Last Filed: 10/12/19 06:55> Progress - Progress Progress: Differential diagnosis: Medication overdose, medication reaction, CVA, UTI among others. 10/12/19 06:55 Care for this patient was turned over to Dr. Tam Jean. Adeel Alvarez M.D. #[id number] - Results/Orders Results/Orders: EKG performed 12 October 2019 at 0554 hrs.: Sinus tachycardia at 131 bpm, possible left atrial enlargement, no ST or T wave changes, borderline EKG. 10/12/19 05:55 IV Care:Saline Lock per Protoc QSHIFT Telemetry .ONCE Head [CT] Stat Sodium Chloride 0.9% (Flush) [Saline Flush Syringe] 10 ml IV PRN PRN EKG Assessment ONCE 10/12/19 05:56 stool [FECAL OCCULT BLOOD] Stat STOOL CULTURE Stat URINALYSIS Stat 10/12/19 05:57 CLOSTRIDIUM DIFFICILE AG/TOXIN Stat 10/12/19 06:00 EKG STAT 10/12/19 06:15 CARDIAC ENZYME GROUP Stat COMPLETE METABOLIC PROFILE Stat PARTIAL THROMBOPLASTIN TIME Stat PROTHROMBIN TIME Stat 10/12/19 06:30 Sodium Chloride 0.9% 1000ML [Ns 1000 ml] 1,000 ml IVS ONCE 10/12/19 06:32 LACTIC ACID Stat Laboratory Results - last 24 hr 10/12/19 10/12/19 10/12/19 06:06 06:10 06:15 WBC 42.2 H* RBC 4.60 Hgb 14.1 Hct 43.3 MCV 94.2 MCH 30.7 MCHC 32.6 L RDW 14.1 Plt Count 638 H MPV 7.2 L Absolute Neuts (auto) Not Reportable Absolute Lymphs (auto) Not Reportable Absolute Monos (auto) Not Reportable Absolute Eos (auto) Not Reportable Neutrophils % Not Reportable Neutrophils % (Manual) 74.0 Lymphocytes % Not Reportable Lymphocytes % (Manual) 12.0 Monocytes % Not Reportable Monocytes % (Manual) 1.0 Eosinophils % Not Reportable Basophils % Not Reportable Band Neutrophils 13.0 H* Platelet Estimate Increased Normal RBC Morphology Normal rbc morph Sodium 139 Potassium 3.9 Chloride 106 Carbon Dioxide 16 L Anion Gap 20.9 H BUN 13 Creatinine 1.21 BUN/Creatinine Ratio 10.7 POC Glucose 237 H Random Glucose 220 H Serum Osmolality 284.4 Calcium 9.9 Total Bilirubin 0.8 AST 122 H ALT 98 H Alkaline Phosphatase 453 H Creatine Kinase 111 Serum Total Protein 6.8 Albumin 3.3 Globulin 3.5 Albumin/Globulin Ratio 0.9 L Serum HCG, Qual 10/12/19 06:15 WBC RBC Hgb Hct MCV MCH MCHC RDW Plt Count MPV Absolute Neuts (auto) Absolute Lymphs (auto) Absolute Monos (auto) Absolute Eos (auto) Neutrophils % Neutrophils % (Manual) Lymphocytes % Lymphocytes % (Manual) Monocytes % Monocytes % (Manual) Eosinophils % Basophils % Band Neutrophils Platelet Estimate Normal RBC Morphology Sodium Potassium Chloride Carbon Dioxide Anion Gap BUN Creatinine BUN/Creatinine Ratio POC Glucose Random Glucose Serum Osmolality Calcium Total Bilirubin AST ALT Alkaline Phosphatase Creatine Kinase Serum Total Protein Albumin Globulin Albumin/Globulin Ratio Serum HCG, Qual Negative <Adeel Alvarez - Last Filed: 10/12/19 06:55> - Progress Progress: 10/12/19 08:27 The patient is a 44-year-old female presenting to the emergency room secondary to what appears to be primarily septic shock. Source is not entirely certain though the fact that the patient had a lumbar spine surgery 10 days ago, does make the operative site a likely source. No doubt the hydrocodone, that she had been taking for her pain, likely did contribute to some lowering of the blood pressure and some respiratory suppression. The patient is now alert and oriented x4. She is 100% on 2 L nasal cannula. She is still requiring some support for her blood pressures. He received almost 3 L of IV fluids and she is on 4 mics of Levophed currently. Blood cultures have been taken. The patient will need to have lactic acid levels repeated. The patient has been started on Zosyn and linezolid. She is also received a dose of Solu-Medrol for the shock component. Alkaline phosphatase is significantly elevated however she did just have a spinal surgery. The patient will need additional imaging upon arrival, likely with IV contrast. We are currently trying to increase perfusion to the kidneys as best we can before she requires any contrast. Transferring for higher level of care, and evaluation of her surgical site, preferably by her operating surgeon. Critical care time spent for septic shock is 45 minutes. jack jean [id number] - Results/Orders Results/Orders: Laboratory Tests 10/12/19 10/12/19 10/12/19 06:06 06:10 06:15 WBC 42.2 H* RBC 4.60 Hgb 14.1 Hct 43.3 MCV 94.2 MCH 30.7 MCHC 32.6 L RDW 14.1 Plt Count 638 H MPV 7.2 L Absolute Neuts (auto) Not Reportable Absolute Lymphs (auto) Not Reportable Absolute Monos (auto) Not Reportable Absolute Eos (auto) Not Reportable Neutrophils % Not Reportable Neutrophils % (Manual) 74.0 Lymphocytes % Not Reportable Lymphocytes % (Manual) 12.0 Monocytes % Not Reportable Monocytes % (Manual) 1.0 Eosinophils % Not Reportable Basophils % Not Reportable Band Neutrophils 13.0 H* Platelet Estimate Increased Normal RBC Morphology Normal rbc morph PT INR PTT (SP) Sodium 139 Potassium 3.9 Chloride 106 Carbon Dioxide 16 L Anion Gap 20.9 H BUN 13 Creatinine 1.21 BUN/Creatinine Ratio 10.7 POC Glucose 237 H Random Glucose 220 H Serum Osmolality 284.4 Lactic Acid Calcium 9.9 Total Bilirubin 0.8 AST 122 H ALT 98 H Alkaline Phosphatase 453 H Creatine Kinase 111 CK-MB (CK-2) 2.3 CK-MB (CK-2) % Not Reportable Troponin I 0.05 Serum Total Protein 6.8 Albumin 3.3 Globulin 3.5 Albumin/Globulin Ratio 0.9 L Serum HCG, Qual 10/12/19 10/12/19 10/12/19 06:15 06:15 06:50 WBC RBC Hgb Hct MCV MCH MCHC RDW Plt Count MPV Absolute Neuts (auto) Absolute Lymphs (auto) Absolute Monos (auto) Absolute Eos (auto) Neutrophils % Neutrophils % (Manual) Lymphocytes % Lymphocytes % (Manual) Monocytes % Monocytes % (Manual) Eosinophils % Basophils % Band Neutrophils Platelet Estimate Normal RBC Morphology PT 10.8 INR 1.09 PTT (SP) 25.8 Sodium Potassium Chloride Carbon Dioxide Anion Gap BUN Creatinine BUN/Creatinine Ratio POC Glucose Random Glucose Serum Osmolality Lactic Acid 4.7 H* Calcium Total Bilirubin AST ALT Alkaline Phosphatase Creatine Kinase CK-MB (CK-2) CK-MB (CK-2) % Troponin I Serum Total Protein Albumin Globulin Albumin/Globulin Ratio Serum HCG, Qual Negative 10/12/19 06:50 WBC RBC Hgb Hct MCV MCH MCHC RDW Plt Count MPV Absolute Neuts (auto) Absolute Lymphs (auto) Absolute Monos (auto) Absolute Eos (auto) Neutrophils % Neutrophils % (Manual) Lymphocytes % Lymphocytes % (Manual) Monocytes % Monocytes % (Manual) Eosinophils % Basophils % Band Neutrophils Platelet Estimate Normal RBC Morphology PT INR PTT (SP) Sodium Potassium Chloride Carbon Dioxide Anion Gap BUN Creatinine BUN/Creatinine Ratio POC Glucose Random Glucose Serum Osmolality Lactic Acid Cancelled Calcium Total Bilirubin AST ALT Alkaline Phosphatase Creatine Kinase CK-MB (CK-2) CK-MB (CK-2) % Troponin I Serum Total Protein Albumin Globulin Albumin/Globulin Ratio Serum HCG, Qual Head CT shows no acute intracranial pathology. Chest x-ray shows no acute pathology. <Jack Jean - Last Filed: 10/12/19 08:57> Departure - Departure Time of Disposition: 06:57 <Adeel Alvarez - Last Filed: 10/12/19 06:55> <Jack Jean - Last Filed: 10/12/19 08:57> - Departure Clinical Impression: Septic shock, Lactic acidosis Altered mental status Qualifiers: Altered mental status type: stupor Qualified Code(s): R40.1 - Stupor Fecal incontinence Qualifiers: Fecal incontinence type: full incontinence of feces Qualified Code(s): R15.9 - Full incontinence of feces Disposition: Transfer to Hospital Condition: Poor Referrals: Ronnie Story MD [Primary Care Provider] - 1-2 Weeks Home Medications: Ambulatory Orders Citalopram Hydrobromide [Celexa] 40 mg PO DAILY 10/30/13 Lisinopril 10 mg PO DAILY 10/31/15 Gabapentin [Neurontin] 300 mg PO BID #30 cap 11/26/16 Hydrocodone-Acetaminophen [Mclain 5-325 mg] 1 tab PO Q6H PRN #20 tab 08/25/17 Valacyclovir HCl [Valtrex] 1 gm PO TID #12 tab 11/26/16 levoFLOXacin [Levaquin] 500 mg PO DAILY #5 tab 11/26/16 Epinephrine [Epipen 2-Paxton] 0.3 mg IJ ONCE PRN #1 ml 02/13/18 Transfer to Outside Facility - Transfer Information Decision to Transfer Date: 10/12/19 Decision to Transfer Time: 08:57 Reason for Transfer: specialized care not available Accepting Provider:: dr yin Accepting Facility: [facility] <Jack Jean - Last Filed: 10/12/19 08:57>
[2019-10-12] MEDS ORDERED: SODIUM CHLORIDE 0.9% 1000ML 1,000 ML IVS ONE (06:30)
[2019-10-12] MEDS ORDERED: NALOXONE HCL INJ 1 MG/ML SYG IV ONE (06:32)
--- NOTE | 2019-10-12 06:45 | RAD ---
EXAM DESCRIPTION: Chest,1 View CLINICAL HISTORY: confusion and hypoxia COMPARISON: None. FINDINGS: Single frontal view of the chest. Cardiomediastinal silhouette: Normal size and contour. Lungs: No consolidation, pneumothorax, or pleural effusion. Bones: No acute osseous abnormality. Leads overlie the chest. Upper abdomen: No abnormality identified. IMPRESSION: 1. No acute pulmonary process identified. Electronically signed by: Geronimo Jordan 10/12/2019 6:44 AM CDT
[2019-10-12] MEDS ORDERED: PIPERACILLIN/TAZOBACTAM 3.375 GM in SODIUM CHLORIDE 0.9% 100ML 100 ML IVPB ONE (07:09)
[2019-10-12] MEDS ORDERED: SODIUM CHLORIDE 0.9% 1000ML 1,000 ML ONE (07:17)
[2019-10-12] MEDS ORDERED: NOREPINEPHRINE BITARTRATE 4 MG/4 ML VIAL IVPB ONE (07:18)
[2019-10-12] MEDS ORDERED: DEXTROSE 5% 250ML 250 ML ONE (07:18)
[2019-10-12] MEDS ORDERED: methylPREDNISolone SODIUM SUC 125 MG/2 ML VIAL IV ONE (07:23)
--- NOTE | 2019-10-12 07:27 | CT ---
EXAM: Head HISTORY: 44 years Female confusion and hypoxia COMPARISON: 11/19/2018. TECHNIQUE: Contiguous axial images of the head were obtained from the skull base through the vertex without IV contrast followed by multiplanar reformats. This exam was performed according to our departmental dose-optimization program, which includes automated exposure control, adjustment of the mA and/or kV according to patient size and/or use of iterative reconstruction technique. FINDINGS: Brain volume is commensurate with patient age. No hydrocephalus. No midline shift, mass effect or abnormal extraaxial collection. No acute intracranial hemorrhage or infarct. White matter is within normal limits. Orbital contents are unremarkable. The paranasal sinuses and mastoid air cells are well pneumatized. No acute calvarial abnormality. IMPRESSION: 1. No acute intracranial pathology. Electronically signed by: Nino Garcia MD 10/12/2019 7:26 AM CDT
[2019-10-12] MEDS ORDERED: LINEZOLID IV 600 MG in PREMIX BAG 1 BAG IVPB ONE (07:49)
[2019-10-12] MEDS ORDERED: NOREPINEPHRINE BITARTRATE 4 MG in DEXTROSE 5% 250ML 250 ML IVPB SCH (08:00)
[2019-10-12 08:05] VITALS: O2SAT 99
[2019-10-12 09:28] VITALS: BP 118/67; TEMP 97.9
== END 2019-10-12 09:35 | disposition short-term general hospital (02) ==
LOC: ER 05:50
DX: A41.9 Sepsis, unspecified organism (principal); R65.21 Severe sepsis with septic shock; E87.2 Acidosis; R40.1 Stupor; R15.9 Full incontinence of feces; R00.0 Tachycardia, unspecified; R19.7 Diarrhea, unspecified; I10 Essential (primary) hypertension; Z98.890 Other specified postprocedural states; Z87.891 Personal history of nicotine dependence; Z79.899 Other long term (current) drug therapy
CPT/HCPCS: 36415; 70450; 71045; 80053; 81001; 82270; 82550; 82553; 82948; 83605; 84484; 84703; 85025; 85610; 85730; 87040; 87086; 93005; A4216; J2020; J2310; J2543; J2930; J7030; J7050; J7060

== ENCOUNTER → 2019-12-26 | Outpatient (CLI) | payer BC | LOC: GMAJ 16:36 | PROVIDERS: ATTEND Family Medicine | DX: D51.8 Other vitamin B12 deficiency anemias (principal); R53.83 Other fatigue ==

== ENCOUNTER 2020-01-06 07:24 | Emergency (ER) | payer BC ==
[2020-01-06] MEDS ORDERED: SODIUM CHLORIDE 0.9% (FLUSH) 10 ML SYG IV PRN (07:28)
--- NOTE | 2020-01-06 07:47 | ED.PDOC ---
History of Present Illness - General Chief Complaint: Neuro Symptoms/Deficits Stated Complaint: Stroke like symptoms Time Seen by Provider: 01/06/20 07:28 Source: family Exam Limitations: clinical condition Additional Information: 44F presents with stroke-like symptoms. The patient is unable to provide any history which is obtained solely from the . He states that he heard her collapse in the bathroom this morning around an hour prior to arrival. Last known normal was yesterday evening around 11pm. The patient has right sided weakness with incoherent speech. He notes that she has been complaining of headache and neck pressure for the past few weeks. He further states that she had a similar episode a few months ago and was diagnosed with sepsis from urinary tract infection. PMH is significant for hypertension, history of lumbar spine fusion. History is otherwise limited by the patient's clinical condition. - History of Present Illness Timing/Duration: 1 hour Severity: severe Allergies/Adverse Reactions: Allergies NO KNOWN ALLERGY Allergy (Verified 01/06/20 07:32) Home Medications: Ambulatory Orders Citalopram Hydrobromide 40 mg PO DAILY 01/06/20 Cyanocobalamin Inj [Vitamin B-12 Inj] 1,000 PO DAILY 01/06/20 Diazepam 10 mg PO DAILY 01/06/20 Gabapentin 300 mg PO DAILY 01/06/20 Lisinopril [Prinivil] 10 mg PO DAILY 01/06/20 Review of Systems - Review of Systems Unable to Obtain Due To: clinical condition Past Medical History (General) - Patient Medical History Hx Seizures: No Hx Stroke: No Hx Asthma: No Hx of COPD: No Hx Congestive Heart Failure: No Hx Pacemaker: No Hx Hypertension: Yes Hx Diabetes: No Hx MRSA: No - Vaccination History Hx Influenza Vaccination: No Hx Pneumococcal Vaccination: No - Social History Hx Tobacco Use: Yes Hx Alcohol Use: Yes - occasional Hx Substance Use: No Hx Substance Use Treatment: No Hx Depression: No Hx Physical Abuse: No Hx Emotional Abuse: No - Female History Patient : No Family Medical History - Family History Mother Family History: Unknown Living Status: Unknown Physical Exam - Physical Exam General Appearance: Lethargic, Obvious distress Eye Exam: bilateral other - Left sided gaze preference ENT Exam: normal ENT inspection Neck: non-tender, full range of motion, supple Respiratory: lungs clear, normal breath sounds, no respiratory distress, no accessory muscle use Cardiovascular/Chest: normal peripheral pulses, regular rate, rhythm, no murmur Gastrointestinal/Abdominal: normal bowel sounds, non tender, soft 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 There is right sided facial droop with right side hemiparesis. She has left sided gaze preference. She is unable to walk. Unable to participate in H&P. Progress - Progress Progress: 01/06/20 07:49 Arrival NIH = 25. CT head per my read is negative for acute hemorrhage. EKG shows sinus bradycardia without acute changes. Symptoms are concerning for MCA stroke. Last known normal yesterday evening, she does not qualify for tPA due to being out of time window. She may be candidate for neurointervention. Discussed with nursing staff, will plan transfer by air to [facility] for further evaluation and possible additional intervention. 01/06/20 08:[address] Schultz Neurology who recommends transfer, STAT Brain Attack MRI on arrival. Discussed with Dr. Murray in ED who accepts for transfer. - Results/Orders Results/Orders: 01/06/20 07:28 Sodium Chloride 0.9% (Flush) [Saline Flush Syringe] 10 ml IV PRN PRN 01/06/20 07:29 Chest,1 View [RAD] Stat 01/06/20 07:30 EKG STAT 01/06/20 07:45 PARTIAL THROMBOPLASTIN TIME Stat PROTHROMBIN TIME Stat Laboratory Results - last 24 hr 01/06/20 01/06/20 01/06/20 07:40 07:45 07:45 WBC 7.8 RBC 5.38 Hgb 16.5 H Hct 48.2 H MCV 89.6 MCH 30.7 MCHC 34.2 RDW 14.7 H Plt Count 211 MPV 8.0 Absolute Neuts (auto) 4.80 Absolute Lymphs (auto) 2.30 Absolute Monos (auto) 0.40 Absolute Eos (auto) 0.30 Absolute Basos (auto) 0.00 Neutrophils % 61.6 Lymphocytes % 29.3 Monocytes % 5.2 Eosinophils % 3.3 Basophils % 0.6 Sodium 139 Potassium 3.9 Chloride 103 Carbon Dioxide 25 Anion Gap 14.9 BUN 10 Creatinine 0.64 BUN/Creatinine Ratio 15.6 POC Glucose 128 H Random Glucose 142 H Serum Osmolality 279.0 Calcium 9.6 Total Bilirubin 0.4 AST 24 ALT 19 Alkaline Phosphatase 70 Creatine Kinase 62 CK-MB (CK-2) 1.2 CK-MB (CK-2) % Not Reportable Troponin I 0.03 Serum Total Protein 7.2 Albumin 4.4 Globulin 2.8 Albumin/Globulin Ratio 1.6 - EKG/XRAY/CT Comments: 0738 Sinus Bradycardia, rate 57, nl axis, nl intervals, no STEMI CT: No acute intracranial injury, no hemorrhage Stroke Information - Onset of Symptoms Symptoms of Stroke: Aphasia, Weakness of limb, Right Hemiparesis Stroke Onset of Symptoms Date: 01/06/20 - Contraindications t-PA Contraindication: Medical Contraindication Departure - Departure Clinical Impression: Acute ischemic stroke Time of Disposition: 08:13 Disposition: Transfer to Hospital Condition: Serious Departure Forms: ED Discharge - Pt. Copy, Patient Portal Self Enrollment Referrals: Ronnie Story MD [Primary Care Provider] - 1-2 Weeks Home Medications: Ambulatory Orders Citalopram Hydrobromide 40 mg PO DAILY 01/06/20 Cyanocobalamin Inj [Vitamin B-12 Inj] 1,000 PO DAILY 01/06/20 Diazepam 10 mg PO DAILY 01/06/20 Gabapentin 300 mg PO DAILY 01/06/20 Lisinopril [Prinivil] 10 mg PO DAILY 01/06/20 Critical Care Note - Critical Care Note Total Time (mins): 37 Transfer to Outside Facility - Transfer Information Decision to Transfer Date: 01/06/20 Decision to Transfer Time: 08:04 Reason for Transfer: specialized care not available Accepting Facility: [facility]
[2020-01-06] MEDS ORDERED: ASPIRIN SUPP 600 MG SUP PR ONE (07:55)
--- NOTE | 2020-01-06 07:55 | CT ---
CT HEAD WITHOUT CONTRAST CLINICAL HISTORY: Right side weakness COMPARISON: CT head without contrast 11/19/2009. TECHNIQUE: Axial unenhanced CT imaging of the brain. Reformatted coronal and sagittal images obtained. This examination was performed according to our departmental dose optimization program, which includes automated exposure control, adjustment of the mA and/or kV according to patient size and/or use of iterative reconstruction technique. FINDINGS: Evaluation is limited secondary to motion artifact which degrades image quality. Normal ventricle size and contour. Extra-axial fluid spaces appear normal. Callahan-white matter differentiation is preserved. There is no intracranial hemorrhage or edema. No mass or midline shift. No evidence of acute territorial infarction or hyperdense vessel. The cerebellum and vermis appear normal. Fourth ventricle is midline. Prepontine cisterns are not effaced. Normal sella contents. Intraorbital contents appear normal. Clear paranasal sinuses and mastoid air cells. Skull base is intact. Unremarkable calvarium. Normal scalp soft tissues. IMPRESSION: 1. Unremarkable CT brain. Electronically signed by: Cyn Hernandez DO 01/06/2020 7:54 AM CDT
--- NOTE | 2020-01-06 08:18 | RAD ---
EXAM DESCRIPTION: X Ray Chest,1 View CLINICAL HISTORY: 44 years Female, Stroke COMPARISON: October 12, 2019. FINDINGS/IMPRESSION: 1. Cardiomediastinal silhouette is normal. 2. No focal consolidation, pneumothorax or pleural effusion. 3. Osseous structures unremarkable. Electronically signed by: Nahid Thomason MD 01/06/2020 8:16 AM CDT
[2020-01-06 08:43] VITALS: BP 132/80; TEMP 98.2; O2SAT 98
== END 2020-01-06 08:43 | disposition short-term general hospital (02) ==
LOC: ER 07:24
DX: I63.9 Cerebral infarction, unspecified (principal); G81.91 Hemiplegia, unspecified affecting right dominant side; R47.9 Unspecified speech disturbances; I69.392 Facial weakness following cerebral infarction; R51.9 Headache, unspecified; M54.2 Cervicalgia; R00.1 Bradycardia, unspecified; I10 Essential (primary) hypertension; Z87.440 Personal history of urinary (tract) infections; Z87.891 Personal history of nicotine dependence; Z79.899 Other long term (current) drug therapy